=== PATIENT | female | born 1995 | race Caucasian/White ===

== ENCOUNTER 2016-10-21 04:39 | Outpatient (CLI) | payer BC ==
[~2016-10-21] VITALS: Ht 157.5 cm; Wt 66.8 kg
[~2016-10-21 04:39] MED LIST: NO HOME MEDICATIONS
[2016-10-21 05:10] VITALS: BP 132/85; PULSE 82; TEMP 98.1
[2016-10-21] MEDS ORDERED: PRENATAL1 TA7 PO (05:12)
[2016-10-21 05:13] VITALS: BP 132/85; PULSE 82; TEMP 98.1
== END 2016-10-21 06:20 | disposition home or self-care (01) ==
LOC: LDRO 04:39
DX: O47.9 False labor, unspecified (principal); Z3A.40 40 weeks gestation of pregnancy

== ENCOUNTER 2016-10-23 03:08 | Inpatient (IN) | payer BC ==
[2016-10-23] VITALS (45 sets, daily range): BP systolic 100–150; BP diastolic 51–99; PULSE 48–100; TEMP 97.9–98.6
[~2016-10-23] VITALS: Ht 157.5 cm; Wt 112.7 kg
[~2016-10-23 03:08] MED LIST changes: +PRENATAL1 TA7 PO
[2016-10-23 06:18] LABS: BASO # 0.1 (0.0-0.2); BASO % 0.6 % (0.0-2.0); EOS # 0.2 (0.0-0.7); EOS % 1.5 % (0-4.0); GRAN # 7.6 (1.4-6.5); GRAN % 72.1 % (42.2-75.2); LYMPH # 2.2 (1.2-3.4); LYMPH % 20.9 % (20.0-51.0); MEAN CELL VOLUME 86 fl (80.0-100.0); MEAN CORPUSCULAR HGB CONC 35 g/dl (33.0-37.0); MEAN PLATELET VOLUME 10.8 fl (7.4-10.4); MONO # 0.5 (0.1-0.6); MONO % 4.5 % (1.7-9.3); PLATELET COUNT 267 K/mm3 (130-400); REDCELL DISTRIBUTION WIDTH-CV 15.4 % (11.5-14.5); WHITE BLOOD COUNT 10.6 K/mm3 (4.8-10.8)
[2016-10-23 06:19] LABS: HEMATOCRIT 33.5 % (37.0-47.0); HEMOGLOBIN 11.6 g/dl (12.5-16.0); MEAN CORPUSCULAR HEMOGLOBIN 30 pg (27.0-31.0)
[2016-10-24 03:52] VITALS: BP 115/55; PULSE 73; TEMP 98.5
[2016-10-24 07:00] VITALS: BP 117/55; PULSE 87; TEMP 98.6
[2016-10-24] MEDS ORDERED: IBU800 M1 PO (08:39)
[2016-10-24 16:11] VITALS: BP 114/52; PULSE 76; TEMP 98.1
[2016-10-24 19:15] VITALS: BP 106/52; PULSE 76; TEMP 98.3
[2016-10-24 21:15] VITALS: BP 106/52; PULSE 76; TEMP 98.3
[2016-10-25 08:20] VITALS: BP 128/66; PULSE 81; TEMP 98.3
== END 2016-10-25 16:40 | disposition home or self-care (01) | DRG 775 ==
LOC: LDRO 03:08 → OB 04:46 → LDR 04:46 → OB 18:45
PROVIDERS: Obstetrics & Gynecology
PROC: 10E0XZZ Delivery of Products of Conception, External Approach (ICD-10-PCS; principal; 2016-10-23)
PROC: 0KQM0ZZ Repair Perineum Muscle, Open Approach (ICD-10-PCS; 2016-10-23)
DX: O48.0 Post-term pregnancy (principal); O36.0130 Maternal care for anti-D [Rh] antibodies, third trimester, not applicable or unspecified; O99.824 Streptococcus B carrier state complicating childbirth; O77.0 Labor and delivery complicated by meconium in amniotic fluid; O70.1 Second degree perineal laceration during delivery; Z3A.40 40 weeks gestation of pregnancy; Z37.0 Single live birth
CPT/HCPCS: J2540; J2590; J2791; J2795; J7120

== ENCOUNTER 2019-11-30 06:55 | Outpatient (CLI) | payer BC, OTHER ==
[~2019-11-30] VITALS: Ht 157.5 cm; Wt 120.0 kg
[~2019-11-30 06:55] MED LIST changes: +IBU800 M1 PO
--- NOTE | 2019-11-30 07:00 | NUR ---
Pt here with c/o ?SROM. Pt to EFM, explained. SVE by Prabhu MIKE and , amniotrace negative. Assessment complete. 40.2 weeks, G2L1. GBS negative. FHR reactive, denies feeling any contractions. 0745:Dr Hermosillo here and updated, orders received to DC home.
[2019-11-30 07:17] VITALS: BP 124/67; PULSE 75; TEMP 98.2
[2019-11-30] MEDS ORDERED: ZOFRAN 4MG T4 MG/TAB PO (07:21)
[2019-11-30] MEDS ORDERED: PRENATAL TABLET PO (07:21)
--- NOTE | 2019-11-30 07:55 | NUR ---
Discharge instructions given, pt verbalizes understanding. No further questions. 0800:to personal vehicle.
== END 2019-11-30 08:00 | disposition home or self-care (01) ==
LOC: LDR 06:55 → LDRO 06:55 → LDR 07:55 → LDRO 08:00
DX: O42.92 Full-term premature rupture of membranes, unspecified as to length of time between rupture and onset of labor (principal); Z3A.40 40 weeks gestation of pregnancy
CPT/HCPCS: OP

== ENCOUNTER 2019-12-03 01:05 | Outpatient (CLI) | payer BC, OTHER ==
[~2019-12-03] VITALS: Ht 157.5 cm; Wt 120.5 kg
[~2019-12-03 01:05] MED LIST changes: +PRENATAL TABLET PO; +ZOFRAN 4MG T4 MG/TAB PO
--- NOTE | 2019-12-03 01:15 | NUR ---
Ambulatory to unit for labor assessment, accompanied by spouse. oriented to room, monitor, plan of care. Pt reports "contractions started @ 2247""
[2019-12-03 01:32] VITALS: BP 132/74; PULSE 92; TEMP 98.1
[2019-12-03 02:30] VITALS: BP 126/76; PULSE 96
[2019-12-03 02:45] VITALS: BP 129/78; PULSE 98
--- NOTE | 2019-12-03 03:10 | NUR ---
Discharge instructions reviewed with pt and spouse, questions invited and answered.
== END 2019-12-03 03:10 ==
LOC: LDRO 01:05
DX: O62.9 Abnormality of forces of labor, unspecified (principal); Z3A.40 40 weeks gestation of pregnancy

== ENCOUNTER 2019-12-03 23:27 | Inpatient (IN) | payer BC, OTHER ==
[~2019-12-03] VITALS: Ht 157.5 cm; Wt 120.5 kg
--- NOTE | 2019-12-03 23:40 | NUR ---
Ambulatory to unit for labor assessment, accompanied by spouse. Pt reports "contractions all day" . oriented to room, monitor, plan of care.
[2019-12-03 23:57] VITALS: BP 125/67; PULSE 80; TEMP 98
[2019-12-04] VITALS (17 sets, daily range): BP systolic 100–136; BP diastolic 47–79; PULSE 61–97; TEMP 97.8–98.8
--- NOTE | 2019-12-04 00:20 | NUR ---
To edge of bed for epidural placement. LClouse BOAT BUILDER into room for epidural placement.
[2019-12-04 00:22] LABS: BASO % 0.4 % (0.0-2.0); EOS # 0.1 (0.0-0.7); EOS % 0.9 % (0-4.0); GRAN # 6.1 (1.4-6.5); GRAN % 67.7 % (42.2-75.2); LYMPH # 2.1 (1.2-3.4); LYMPH % 23.6 % (20.0-51.0); MEAN CELL VOLUME 85 fl (80.0-100.0); MEAN CORPUSCULAR HEMOGLOBIN 29 pg (27.0-31.0); MEAN CORPUSCULAR HGB CONC 35 g/dl (33.0-37.0); MEAN PLATELET VOLUME 10.9 fl (7.4-10.4); MONO # 0.6 (0.1-0.6); MONO % 6.8 % (1.7-9.3); PLATELET COUNT 260 K/mm3 (130-400); RED BLOOD COUNT 3.76 M/mm3 (4.10-5.30); REDCELL DISTRIBUTION WIDTH-CV 15.7 % (11.5-14.5)
[2019-12-04 00:35] LABS: HEMATOCRIT 31.9 % (37.0-47.0)
--- NOTE | 2019-12-04 02:48 | NUR ---
Dr Fraser into room, SVE with AROM. Pushing instructions given. [address] Fraser. 0256 Placenta delivers spont and intact. Pitocin 30units in 500ccLR IV started at bolus rate.
[2019-12-05 07:44] VITALS: BP 128/68; PULSE 98; TEMP 97.8
[2019-12-05] MEDS ORDERED: IBU800 M1 PO (10:33)
== END 2019-12-05 11:50 | disposition home or self-care (01) | DRG 807 ==
LOC: LDRO 23:27 → LDR 23:50 → LDRO 23:51 → OB 23:52 → LDR 23:52 → OB 12-04 05:30
PROVIDERS: Obstetrics & Gynecology; ADMIT Obstetrics & Gynecology
PROC: 10E0XZZ Delivery of Products of Conception, External Approach (ICD-10-PCS; principal; 2019-12-03)
PROC: 0KQM0ZZ Repair Perineum Muscle, Open Approach (ICD-10-PCS; 2019-12-03)
PROC: 10907ZC Drainage of Amniotic Fluid, Therapeutic from Products of Conception, Via Natural or Artificial Opening (ICD-10-PCS; 2019-12-03)
DX: O99.214 Obesity complicating childbirth (principal); Z37.0 Single live birth; E66.9 Obesity, unspecified; O26.893 Other specified pregnancy related conditions, third trimester; O70.1 Second degree perineal laceration during delivery; Z3A.40 40 weeks gestation of pregnancy; Z67.91 Unspecified blood type, Rh negative
CPT/HCPCS: J2405; J2590; J2791; J2795; J7120